=== PATIENT | male | born 1965 ===

== ENCOUNTER 2025-06-02 06:20 | Day surgery (SDC) | payer BC, SELFPAY ==
[2025-06-02 07:20] LABS: Glucose - Point of Care 139 mg/dl (70-99)
== END 2025-06-02 08:55 | disposition home or self-care (01) ==
LOC: GI 06:20
PROVIDERS: ATTENDING PHYSICIAN Internal Medicine Gastroenterology
DX: Z12.11 Encounter for screening for malignant neoplasm of colon (principal); K57.30 Diverticulosis of large intestine without perforation or abscess without bleeding; D12.0 Benign neoplasm of cecum; Z83.719 Family history of colon polyps, unspecified
CPT/HCPCS: 45385; 82962; 88305

== ENCOUNTER → 2025-08-19 09:14 | Outpatient (REF) | payer BC, SELFPAY | LOC: RCS 09:14 | PROVIDERS: ATTENDING PHYSICIAN Family Medicine | DX: R00.2 Palpitations (principal) | CPT/HCPCS: 93225; 93226 ==